=== PATIENT | female | born 2000 | race Caucasian/White ===

== ENCOUNTER 2022-05-02 12:26 | Emergency (ER) | payer SELFPAY ==
[2022-05-02 12:35] VITALS: BP 119/89; PULSE 106; RESP 18; TEMP 37.3; O2SAT 100
--- NOTE | 2022-05-02 12:45 | ED.EAR ---
HPI - Ear Problem General Chief complaint: Ear Stated complaint: Lt Ear Irritation Time Seen by Provider: 05/02/22 12:45 History of Present Illness HPI Narrative: Karena Hughes is a 22 yo female with no PMH who comes [facility] complaining of ear pain that started on Saturday with drainage last night, cold sore to her left lower lip, cold sore to L lower lip, and productive cough. Aunt wants her swabbed for COVID Related Data Allergies Allergy/AdvReac Type Severity Reaction Status Date / Time Sulfa (Sulfonamide AdvReac Mild Rash Verified 05/02/22 12:45 Antibiotics) Review of Systems Review of Systems: CONSTITUTIONAL: Denies fever, chills, sweats. EYES: Denies visual changes, redness, discharge. ENT: Denies rhinorrhea, congestion, sore throat, left otalgia. CARDIOVASCULAR: Denies chest pain, palpitations, edema. RESPIRATORY: Denies dyspnea, wheezing, productive cough GASTROINTESTINAL: Denies abdominal pain, nausea, vomiting, diarrhea. GENITOURINARY: Denies dysuria, hematuria, abnormal discharge SKIN: Denies rash or itching. Cold sore to left lower lip NEUROLOGIC: Denies numbness, or focal weakness. PSYCHIATRIC: Denies anxiety or depression. [facility] Social History Social History (Updated 05/02/22 @ 12:49 by Jacqueline Torres CNP) Smoking status: Current some day smoker Alcohol intake: current Comments At time of signature, I agree with nursing past medical, surgical, social and family history. There is no relevant family history pertinent to the presenting complaint. Exam Narrative: GENERAL: This is a well-nourished, well-developed patient, in mild distress. HEAD: normocephalic, atraumatic. EYES: Sclera clear/white. Vision is grossly intact. EARS: External ears normal, auditory canal Lis erythematous and edema and with clear drainage, TMs normal without perforation. Hearing grossly intact. NOSE: External nose normal without nasal discharge, nares without redness, no rhinorrhea. THROAT: Mucous membranes moist, posterior pharynx mild erythema NECK: Neck supple, non-tender CARDIOVASCULAR: Regular rate and rhythm without murmurs, gallops, or rubs. RESPIRATORY: Clear to auscultation. Breath sounds equal bilaterally. No wheezes, rales, or rhonchi. GASTROINTESTINAL: Not done SKIN: warm, intact with no suspicious lesions or rash, good texture and turgor. NEURO: awake, alert, and oriented to person, place and time. There were no obvious focal neurologic abnormalities. Steady gait EXTREMITIES: Normal range of motion. BACK: Nontender without deformity Course Course Emergency Course: Patient comes in with cough and left ear pain and cold sore on left lower lip COVID test is negative Because of the exam in the ear and severity of the infection started on eardrops and oral antibiotics recommended use of Abreva for cold sore left lower lip Level of Care: Express Care Visit Vital Signs Vital signs: Vital Signs Temperature 99.2 F 05/02/22 12:35 Pulse Rate 106 H 05/02/22 12:35 Respiratory Rate 18 05/02/22 12:35 Blood Pressure 119/89 05/02/22 12:35 Pulse Oximetry 100 05/02/22 12:35 Oxygen Delivery Room Air 05/02/22 12:35 Temperature 99.2 F 05/02/22 12:35 Pulse Rate 106 H 05/02/22 12:35 Respiratory Rate 18 05/02/22 12:35 Blood Pressure 119/89 05/02/22 12:35 Pulse Oximetry 100 05/02/22 12:35 Oxygen Delivery Room Air 05/02/22 12:35 Medical Decision Making Differential Diagnosis Differential Diagnosis: Otitis media versus otitis externa versus eustachian tube dysfunction versus COVID versus viral syndrome Vital Signs Vital Signs: Vital Signs Temperature 99.2 F 05/02/22 12:35 Pulse Rate 106 H 05/02/22 12:35 Respiratory Rate 18 05/02/22 12:35 Blood Pressure 119/89 05/02/22 12:35 Pulse Oximetry 100 05/02/22 12:35 Oxygen Delivery Room Air 05/02/22 12:35 Temperature 99.2 F 05/02/22 12:35 Pulse Rate 106 H 05/02/22 12:35 Respiratory Rate
== END 2022-05-02 13:24 | disposition home or self-care (01) ==
PROVIDERS: Emergency Provider Nurse Practitioner
DX: H66.92 Otitis media, unspecified, left ear (principal); R05.9 Cough, unspecified; Z20.822 Contact with and (suspected) exposure to COVID-19; F17.200 Nicotine dependence, unspecified, uncomplicated
CPT/HCPCS: 87426; 99213; C9803; G0463